=== PATIENT | female | born 1965 | race Caucasian/White ===

== ENCOUNTER 2018-12-17 13:53 | Outpatient (CLI) | payer BC ==
--- NOTE | 2018-12-17 15:54 | ULT ---
THYROID ULTRASOUND: 12/17/2018 PROVIDED CLINICAL HISTORY: Enlarged thyroid. FINDINGS: The right thyroid lobe measures about 5.9 x 2.9 x 2.5 cm. There is a dominant 4.1 x 3.3 x 2.5 cm nod ule involving the mid to inferior portion of the right thyroid lobe. This demonstrates almost comple tely solid composition, predominantly isoechoic echogenicity, wider than tall in shape, with a smooth margin and no apparent echogenic foci. There is a 1.5 x 1.2 x 1.4 cm mixed cystic and solid nodule at the superior pole. This demonstrates an isoechoic echogenicity of the solid portions, a wider than tall shape, smooth margins, and periphe ral rim calcification. The left thyroid lobe measures about 5.4 x 1.7 x 1.4 cm and demonstrates a subtle nonspecific focus o f somewhat circumscribed altered echogenicity, measuring about 5 mm, at the inferior pole. IMPRESSION: 1. A 4.1 cm mid to lower right thyroid lobe nodule, for which fine needle aspiration is recommended. TI-RADS category 3-Mildly suspicious. 2. A 1.5 cm mixed cystic and solid nodule at the superior pole of the right thyroid lobe, for which f ine needle aspiration is recommended. TI-RADS level 4-Moderately suspicious. POS: [facility]
== END 2018-12-17 13:54 | disposition home or self-care (01) ==
LOC: BICULT 13:53
PROVIDERS: ATTEND Nurse Practitioner Family
DX: E04.9 Nontoxic goiter, unspecified (principal); E04.1 Nontoxic single thyroid nodule
CPT/HCPCS: 76536

== ENCOUNTER 2018-12-31 12:40 | Observation (INO) | payer BC ==
[2018-12-31] MEDS ORDERED: Lidocaine 1% w/Epinephrine 1:100K 20 ML VIAL ONE (15:43)
[2018-12-31] MEDS ORDERED: Dexamethasone 20 MG/5 ML VIAL ONE (15:49)
[2018-12-31] MEDS ORDERED: Metoclopramide HCl 10 MG/2 ML VIAL ONE (15:49)
[2018-12-31] MEDS ORDERED: Succinylcholine Chloride 20 MG/ML 10 ml SYRINGE FS ONE (15:49)
[2018-12-31] MEDS ORDERED: Ondansetron PF 4 MG/2 ML Vial ONE (15:49)
[2018-12-31] MEDS ORDERED: PROPOFOL 200 MG/20 ML VIAL ONE (15:49)
[2018-12-31] MEDS ORDERED: Lidocaine 1% PF 5 ML VIAL ONE (15:49)
[2018-12-31] MEDS ORDERED: Dexmedetomidine 200 MCG/2 ML VIAL ONE (15:59)
[2018-12-31] MEDS ORDERED: Fentanyl 100 MCG/2 ML VIAL ONE ×2 (15:59→17:39)
[2018-12-31] MEDS ORDERED: Midazolam HCl 2 mg/2 ml Vial ONE (16:01)
[2018-12-31] MEDS ORDERED: Bacitracin Zinc Ointment 30 gm TUBE ONE (17:05)
[2018-12-31] MEDS ORDERED: Promethazine HCl 25 MG/ML VIAL IM PRN (17:24)
[2018-12-31] MEDS ORDERED: Ondansetron HCl/PF 4 MG/2 ML Vial IVP PRN (17:24)
[2018-12-31] MEDS ORDERED: Promethazine HCl 25 MG/ML VIAL SLOW IVP PRN (17:24)
[2018-12-31] MEDS ORDERED: Morphine 2 MG/ML SYRINGE SLOW IVP PRN (17:46)
[2018-12-31] MEDS ORDERED: Ondansetron PF 4 MG/2 ML Vial SLOW IVP PRN (17:47)
[2018-12-31 18:20] VITALS: BMI 32.2
[2018-12-31] MEDS: ceFAZolin 1 GM/D5W 1 GM in Premix Bag 1 BAG IVPB SCH (21:09)
[2018-12-31] MEDS: Sodium Chloride 0.45% 1,000 ML IV SCH (21:09)
[2018-12-31] MEDS: Hydrocodone-Acetamin 15 ML UDCUP PO PRN (21:11)
[2019-01-01] MEDS: Hydrocodone-Acetamin 15 ML UDCUP PO PRN ×3 (02:00→10:50)
[2019-01-01] MEDS: ceFAZolin 1 GM/D5W 1 GM in Premix Bag 1 BAG IVPB SCH (06:01)
[2019-01-01] MEDS: Sodium Chloride 0.45% 1,000 ML IV SCH (06:02)
--- NOTE | 2019-01-01 09:31 | OP ---
DATE OF PROCEDURE: 12/31/2018 PREOPERATIVE DIAGNOSIS: Right thyroid mass. POSTOPERATIVE DIAGNOSIS: Right thyroid mass. PROCEDURE PERFORMED: Right hemithyroidectomy with laryngeal nerve monitor. ESTIMATED BLOOD LOSS: 10 mL. COMPLICATIONS: None. ANESTHESIA: GETA. DESCRIPTION OF PROCEDURE: The patient was taken to the operating room and placed supine on the table. General endotracheal anesthesia was obtained by the anesthesia staff. Tube was secured in the midline of the upper lip. Following this, the patient was prepped and draped in standard surgical fashion. A 7 mL of 1% lidocaine with 1:100,000 epinephrine was injected into the skin overlying the thyroid. The incision was made through the skin, subcutaneous tissue, and platysmal layer. Following this, subplatysmal flaps were elevated superiorly to the level of the thyroid notch and inferiorly to the level of the clavicles. Following this, the strap muscles were in the midline and the thyroid gland was identified staying immediately adjacent to the thyroid gland. Dissection was carried right and laterally. The middle thyroid vein was suture ligated. The superior thyroid pedicle was then identified and was suture ligated. Following this, the gland was displaced medially. The right recurrent laryngeal nerve was identified as well as the inferior parathyroids. These were retracted and these were protected as dissection was carried out suture ligating the right inferior thyroid artery and thyroid veins. Following this, the gland was freed from the attachments to the larynx and trachea and the entire right lobe along with 2 significant nodules were removed and sent for frozen section analysis. The frozen section analysis confirmed, but 1 benign nodule and a 2nd that would defer until further staining is required. hemostasis was controlled. A small drain was placed. The strap muscles were reapproximated using a 3-0 Monocryl stitch as well as the platysmal layer. Following this, subcuticular layer was closed using 4-0 Monocryl stitches. The skin was closed using . The patient tolerated the procedure well. Job ID: [id number]
[2019-01-01 11:42] VITALS: BP 136/66; TEMP 98.6
--- NOTE | 2019-01-01 14:51 | PRG ---
DATE OF SERVICE: 01/01/2019 SUBJECTIVE: The patient is postoperative for right thyroidectomy. The patient overall is doing well. She reports no problems. Drain is in place. Scar shows no sign of infection. OBJECTIVE: The patient is well developed, well nourished, no acute distress. Again, drain is in place. There appears to be no difficulty with it. Nurse reports that it put out 25 mL only throughout the entire night. No sign of infection or scar. Drain was removed today without difficulty. ASSESSMENT: Post right thyroidectomy. PLAN: Discharged to home. Follow up with ENT on Saturday or Saturday of next week. Job ID: [id number]
--- NOTE | 2019-01-02 21:17 | EKG ---
Test Reason : Blood Pressure : / mmHG Vent. Rate : 064 BPM Atrial Rate : 064 BPM P-R Int : 154 ms QRS Dur : 070 ms QT Int : 384 ms P-R-T Axes : 065 034 038 degrees QTc Int : 396 ms Normal sinus rhythm Septal infarct , age undetermined Abnormal ECG No previous ECGs available Confirmed by Hoa PARMAR ([id number]) on 01/02/2019 9:17:03 PM Referred By: Confirmed By:Hoa PARMAR
== END 2019-01-01 12:09 | disposition home or self-care (01) ==
LOC: SDC 12:40 → SJJU 17:12
PROVIDERS: ADMIT Otolaryngology Plastic Surgery within the Head & Neck; ATTEND Otolaryngology Plastic Surgery within the Head & Neck
PROC: 0GTH0ZZ Resection of Right Thyroid Gland Lobe, Open Approach (ICD-10-PCS; principal; 2019-01-01)
DX: E04.2 Nontoxic multinodular goiter (principal); I10 Essential (primary) hypertension; R53.83 Other fatigue; F32.9 Major depressive disorder, single episode, unspecified; F41.9 Anxiety disorder, unspecified; Z87.891 Personal history of nicotine dependence
CPT/HCPCS: 36415; 85014; 88307; 88311; 88331; 93005; 93010; 96361; 96365; 96375; G0378; J0690; J2001; J2250; J2270; J3010